=== PATIENT | female | born 1970 | race Caucasian/White ===

== ENCOUNTER 2021-03-07 16:20 | Emergency (ER) | payer OTHER ==
[~2021-03-07 16:20] MED LIST: NORCO 5-325 TA1 EACH PO
[2021-03-07 17:50] LABS: HEMOGLOBIN 12.7 gm/dl (12.3-15.3); RED BLOOD COUNT 4.4 M/UL (4.00-5.10)
[2021-03-07 18:08] LABS: BUN/CREATININE RATIO 27 (0-10)
== END 2021-03-07 20:04 | disposition home or self-care (01) ==
LOC: ER1 16:20
PROVIDERS: Physician Assistant
DX: R00.2 Palpitations (principal); R06.00 Dyspnea, unspecified
CPT/HCPCS: 71045; 80053; 82550; 82553; 83874; 84439; 84443; 84484; 85025; 85379; 93005; 99285

== ENCOUNTER → 2021-03-14 | Outpatient (CLI) | payer OTHER | LOC: HEART 5 15:30 | DX: R00.2 Palpitations (principal) ==